=== PATIENT | female | born 1975 | race Caucasian/White ===

== ENCOUNTER 2020-06-16 14:32 | Emergency (ER) | payer OTHER ==
[~2020-06-16] VITALS: Ht 170.2 cm; Wt 81.6 kg
[2020-06-16 14:44] VITALS: BP 151/91; Ht 170.2 cm; Wt 81.6 kg
== END 2020-06-16 15:34 | disposition home or self-care (01) ==
LOC: ED 14:32
DX: S82.001A Unspecified fracture of right patella, initial encounter for closed fracture (principal); Z98.890 Other specified postprocedural states; W22.8XXA Striking against or struck by other objects, initial encounter; Y93.89 Activity, other specified; Y92.89 Other specified places as the place of occurrence of the external cause; Y99.8 Other external cause status